=== PATIENT | female | born 2000 | race Caucasian/White ===

== ENCOUNTER → 2020-09-10 | Outpatient (CLI) | payer OTHER ==
[~2020-09-10] MED LIST: CYCLOBENZAPRINE5 M3 PO; MEDROL DOSEPAK4 MG PO; NAPROSYN500 MG PO
== END | disposition home or self-care (01) ==
LOC: COVID19 08:57
PROVIDERS: ATTEND Family Medicine
DX: Z20.828 Contact with and (suspected) exposure to other viral communicable diseases (principal)

== ENCOUNTER → 2022-05-13 | Outpatient (CLI) | payer OTHER ==
[2022-05-13 11:28] LABS: HEMATOCRIT 41.3 % (37.0-47.0); MEAN CELL VOLUME 88.6 fl (81.0-99.0); MEAN CORPUSCULAR HGB CONC 32.7 g/dl (33.0-37.0); MEAN PLATELET VOLUME 9.5 fl (9.6-12.3); RED BLOOD COUNT 4.66 10*6/uL (4.10-5.10); RED CELL DISTRI WIDTH 12.7 % (0-14.5); WHITE BLOOD COUNT 7.2 10*3/uL (4.8-10.8)
[2022-05-13 11:47] LABS: BUN 9 mg/dl (7-24); CHLORIDE 107 mmol/L (98-107); POTASSIUM 3.7 mmol/L (3.5-5.1); SODIUM 138 mmol/L (136-145)
[2022-05-13 11:57] LABS: ALKALINE PHOSPHATASE 143 U/L (45-117); CHOLESTEROL 252 mg/dL (<200); CREATININE 0.63 mg/dL (0.55-1.02); FREE T4 1.12 ng/dl (0.76-1.46); LDL CHOLESTEROL 175 mg/dL (9-159); SGOT/AST 33 IU/L (3-35); SGPT/ALT 64 U/L (12-78); TRIGLYCERIDES 129 mg/dl (<150)
[2022-05-13 13:33] LABS: VITAMIN D, 25-HYDROXY 44.3 ng/mL (30-100)
== END | disposition home or self-care (01) ==
LOC: LAB 11:04
PROVIDERS: ATTEND Family Medicine
DX: Z00.00 Encounter for general adult medical examination without abnormal findings (principal); L63.9 Alopecia areata, unspecified; L65.9 Nonscarring hair loss, unspecified